=== PATIENT | female | born 1980 | race Two or more races ===

== ENCOUNTER 2019-11-13 01:53 | Emergency (ER) | payer MEDICAID ==
[~2019-11-13] VITALS: Ht 165.1 cm; Wt 87.0 kg
[2019-11-13 02:00] VITALS: BP 197/116
--- NOTE | 2019-11-13 02:08 | NUR ---
PT AMB TO ROOM WITH STEADY GAIT
== END 2019-11-13 03:08 | disposition home or self-care (01) ==
LOC: ED 03:03
DX: K08.89 Other specified disorders of teeth and supporting structures (principal); I10 Essential (primary) hypertension; F17.210 Nicotine dependence, cigarettes, uncomplicated; I16.9 Hypertensive crisis, unspecified
CPT/HCPCS: 99283; 99406